=== PATIENT | female | born 1935 | race Caucasian/White ===

== ENCOUNTER 2016-05-18 12:23 | Day surgery (SDC) | payer OTHER ==
[~2016-05-18] VITALS: Ht 162.6 cm; Wt 84.0 kg
[~2016-05-18 12:23] MED LIST: ADVAIR HFA120 INHALA IH; COUMADIN7.5 MG PO; CYANOCOBALAM1000 MCG PO; ERGOCALCIF50000 UNIT PO; FEMARA2.5 MG PO; IRON325 M1 PO; LEVEMIR FL100 UNIT/1 SC; LO-DOSE ASPIRIN81 M2 PO; LOPRESSOR25 MG PO; METOPROLOL TART75 MG PO; MUCINEX1200 MG PO; NOVOLOG PE100 UNITS/ SC; PEPCID AC20 MG PO; PREDNISONE5 MG PO; PROVENTIL,2.5 MG/3 M IH; RENA-VITE RX T1 EACH PO; STOOL SOFTENER100 MG PO; TRAMADOL HCL50 MG PO; VITAMIN B122500 MCG PO; WARFARIN SODIUM5 MG PO
[2016-05-18 12:55] VITALS: BP 193/78
[2016-05-18 13:30] LABS: HEMATOCRIT 27.6 % (36.0-46.0); INTER. NORMALIZED RATIO 1.1; MCH 30.6 PG (29.0-34.0); MCHC 31.5 G/DL (30.0-36.0); MCV 97.2 FL (83-99); MEAN PLAT.VOLUME 9.4 uM^3 (9.5-12.4); PLATELET COUNT 272 K/uL (156-360); PROTHROMBIN TIME 11.6 (9.2-11.2); RBC DIS.WIDTH-CV 17.2 % (11.8-14.6); RBC DIS.WIDTH-SD 60.6 % (39-53)
[2016-05-18 13:32] LABS: RED BLOOD COUNT 2.84 M/uL (3.80-5.20); WHITE BLOOD COUNT 6.6 K/uL (4.1-10.2)
[2016-05-18 13:39] LABS: ANION GAP 12 MEQ/L (2-14); CHLORIDE 99 MEQ/L (99-109); POTASSIUM 4.3 MEQ/L (3.7-5.4); SAMPLE HEMOLYSIS CHECK 0; SAMPLE ICTERIC CHECK 0; SAMPLE LIPEMIA CHECK 0; SODIUM 138 MEQ/L (136-147)
[2016-05-18 13:45] LABS: GFR ESTIMATE (CALCULATED) 8 mL/min/; GLUCOSE 179 mg/dL (70-99); UREA NITROGEN (BUN) 37 mg/dL (9-23)
[2016-05-18 14:18] LABS: METH RESISTANT S AUREUS PCR NEGATIVE (NEGATIVE); PROBE CHECK PASS; SPECIMEN PROCESSING CONTROL PASS
[2016-05-18 16:48] VITALS: BP 152/78
== END 2016-05-18 17:45 | disposition home or self-care (01) ==
LOC: SDC 12:23
PROVIDERS: Surgery
PROC: 03170ZD Bypass Right Brachial Artery to Upper Arm Vein, Open Approach (ICD-10-PCS; principal; 2016-05-18)
DX: I12.0 Hypertensive chronic kidney disease with stage 5 chronic kidney disease or end stage renal disease (principal); N18.6 End stage renal disease; Z99.2 Dependence on renal dialysis; J45.909 Unspecified asthma, uncomplicated; M19.90 Unspecified osteoarthritis, unspecified site; J44.9 Chronic obstructive pulmonary disease, unspecified; I83.90 Asymptomatic varicose veins of unspecified lower extremity
CPT/HCPCS: 80048; 82948; 85027; 85610; 87641; 93005; J0690; J1644; J2250; J2405; J2720; J3010

== ENCOUNTER 2016-07-08 07:56 | Day surgery (SDC) | payer OTHER ==
[~2016-07-08] VITALS: Ht 160 cm; Wt 81.7 kg
[~2016-07-08 07:56] MED LIST changes: +VITAMIN B-12250 MCG PO
[2016-07-08 08:45] LABS: POINT-OF-CARE METER ID UU13113696
[2016-07-08 09:46] LABS: METH RESISTANT S AUREUS PCR NEGATIVE (NEGATIVE); PROBE CHECK PASS; SPECIMEN PROCESSING CONTROL PASS
== END 2016-07-08 10:48 | disposition home or self-care (01) ==
LOC: CATH 07:56
PROVIDERS: Surgery
DX: T82.858A Stenosis of other vascular prosthetic devices, implants and grafts, initial encounter (principal); Y83.2 Surgical operation with anastomosis, bypass or graft as the cause of abnormal reaction of the patient, or of later complication, without mention of misadventure at the time of the procedure; I12.0 Hypertensive chronic kidney disease with stage 5 chronic kidney disease or end stage renal disease; N18.6 End stage renal disease; Z99.2 Dependence on renal dialysis; Z85.3 Personal history of malignant neoplasm of breast; M19.90 Unspecified osteoarthritis, unspecified site; J44.9 Chronic obstructive pulmonary disease, unspecified; Z79.4 Long term (current) use of insulin; Z79.01 Long term (current) use of anticoagulants; Z91.09 Other allergy status, other than to drugs and biological substances; Z88.1 Allergy status to other antibiotic agents; Z91.041 Radiographic dye allergy status; Z88.8 Allergy status to other drugs, medicaments and biological substances
CPT/HCPCS: 82948; 87641; C1725; C1769; C1894; J1200; J1644; J2250; J2930; J3010; S0028

== ENCOUNTER 2016-11-30 07:54 | Day surgery (SDC) | payer OTHER ==
[~2016-11-30] VITALS: Ht 160 cm; Wt 83.9 kg
[2016-11-30 08:43] LABS: POINT-OF-CARE METER ID UU13113696
[2016-11-30 09:50] LABS: METH RESISTANT S AUREUS PCR NEGATIVE (NEGATIVE)
[2016-11-30 09:58] LABS: PROBE CHECK PASS; SPECIMEN PROCESSING CONTROL PASS
== END 2016-11-30 10:10 | disposition home or self-care (01) ==
LOC: CATH 07:54
PROVIDERS: Surgery
DX: T82.858A Stenosis of other vascular prosthetic devices, implants and grafts, initial encounter (principal); I12.0 Hypertensive chronic kidney disease with stage 5 chronic kidney disease or end stage renal disease; N18.6 End stage renal disease; Z99.2 Dependence on renal dialysis; J44.9 Chronic obstructive pulmonary disease, unspecified; Z85.3 Personal history of malignant neoplasm of breast; M19.90 Unspecified osteoarthritis, unspecified site; J45.909 Unspecified asthma, uncomplicated; Z88.1 Allergy status to other antibiotic agents; Z88.8 Allergy status to other drugs, medicaments and biological substances; Z91.09 Other allergy status, other than to drugs and biological substances; Z91.041 Radiographic dye allergy status; Z79.01 Long term (current) use of anticoagulants; Z79.4 Long term (current) use of insulin; Z99.3 Dependence on wheelchair; Y83.2 Surgical operation with anastomosis, bypass or graft as the cause of abnormal reaction of the patient, or of later complication, without mention of misadventure at the time of the procedure
CPT/HCPCS: 82948; 87641; C1725; C1769; C1894; J1200; J1644; J2250; J2765; J2930; J3010